=== PATIENT | male | born 1940 | race Caucasian/White ===

== ENCOUNTER 2016-09-02 02:23 | Inpatient (IN) ==
--- NOTE | 2016-08-27 09:09 | EKG Report ---
Test Performed on : 08/27/2016 08:52:08 AM Test Reason : pat joint camo Blood Pressure : / mmHG Vent. Rate : 070 BPM Atrial Rate : 070 BPM P-R Int : 148 ms QRS Dur : 144 ms QT Int : 458 ms P-R-T Axes : 074 -78 105 degrees QTc Int : 494 ms Suspect unspecified pacemaker failure Atrial-sensed ventricular-paced rhythm Abnormal ECG When compared with ECG of 30-MAR-2016 10:50, Electronic ventricular pacemaker has replaced Sinus rhythm. Confirmed by Pepe DIAZ, Kp Kunz ([id number]) on 08/27/2016 3:56:52 PM
[2016-08-27 09:13] LABS: MANUAL DIFF NEEDED? NO; URINE MICRO REVIEW NEEDED? NO; URINE SOURCE CLEAN CATCH
[2016-08-27 09:46] LABS: BASO% 0.3 % (0.0-0.8); BILIRUBIN URINE NEGATIVE (NEGATIVE); BLOOD URINE NEGATIVE (NEGATIVE); COLOR YELLOW; EOS# 0.16 X1000 (0.0-0.7); EOS% 2.2 % (0.0-10.0); GLUCOSE URINE NEGATIVE (NEGATIVE); HEMATOCRIT 46.3 % (42.0-52.0); HEMOGLOBIN 15.5 g/dL (14.0-18.0); IMM GRAN# 0.02 X1000 (0.0-0.04); IMM GRAN% 0.3 % (0.0-0.5); LEUKOCYTES URINE NEGATIVE (NEGATIVE); LYMPH# 2.78 X1000 (1.2-3.4); LYMPH% 38.8 % (20.5-51.1); MCH 31.6 PG (27-31); MCHC 33.5 g/dL (33-37); MCV 94.3 FL (81-99); MONO# 0.65 X1000 (0.11-0.59); MONO% 9.1 % (1.7-9.3); MPV 11.2 FL (7.4-10.4); NEUT% 49.3 % (42.2-75.2); NITRITE URINE NEGATIVE (NEGATIVE); PH URINE 6.5; PLT 226 X1000 (130-400); PROTEIN URINE TRACE mg/dL (NEGATIVE); RBC 4.91 XMIL (4.7-6.1); SP GRAVITY URINE 1.026; TURBIDITY URINE CLEAR (CLEAR); UROBILINOGEN URINE NORMAL (NORMAL)
[2016-08-27 09:48] LABS: UR EPITHELIAL CELLS <10 /HPF (<10); URINE BACTERIA NEGATIVE /HPF; URINE RBC <10 /HPF (<10); URINE WBC <10 /HPF (<10)
[2016-08-27 10:18] LABS: CALCIUM 9.2 mg/dL (8.8-10.2); POTASSIUM 4.4 mmol/L (3.5-5.1)
[2016-08-27 10:56] LABS: INR 0.96; PTT 25.9 Seconds (22.0-36.0)
[2016-09-02] MEDS ORDERED: COLACE ONE (07:59)
[2016-09-02] MEDS ORDERED: REGLAN ONE (07:59)
[2016-09-02] MEDS ORDERED: LYRICA ONE (07:59)
[2016-09-02] MEDS ORDERED: PEPCID ONE (07:59)
[2016-09-02] MEDS ORDERED: CELEBREX ONE (08:00)
[2016-09-02] MEDS ORDERED: VANCOMYCIN 1 GM/NS 1 GM/250 ML IVPB ONE (08:00)
[2016-09-02] MEDS ORDERED: LR 1,000 ML ONE ×2 (08:00→12:36)
[2016-09-02] MEDS ORDERED: TYLENOL PM PO PRN (08:55)
[2016-09-02] MEDS ORDERED: NITROGLYCERIN SL PRN (08:55)
[2016-09-02] MEDS ORDERED: MORPHINE IV PRN (08:57)
[2016-09-02] MEDS ORDERED: UROCIT-K PO SCH (09:00)
[2016-09-02] MEDS ORDERED: CYKLOKAPRON 1,000 MG/NS 1,000 MG/100 ML IVPB ONE ×2 (10:00→10:03)
[2016-09-02] MEDS ORDERED: TORADOL ONE (10:00)
[2016-09-02] MEDS ORDERED: VANCOMYCIN ONE (10:00)
[2016-09-02] MEDS ORDERED: SODIUM CHLORIDE 0.9% ONE (10:00)
[2016-09-02] MEDS ORDERED: MARCAINE 0.25% PF/EPI 1:200,000 ONE (10:00)
[2016-09-02] MEDS ORDERED: EXPAREL 1.3% ONE (10:01)
[2016-09-02] MEDS ORDERED: NAROPIN 0.5% ONE (10:01)
[2016-09-02] MEDS ORDERED: NEOSPORIN G.U. IRRIGANT ONE (10:01)
[2016-09-02 11:16] LABS: URINE MICRO REVIEW NEEDED? NO; URINE SOURCE CATH
[2016-09-02 11:20] LABS: BILIRUBIN URINE NEGATIVE (NEGATIVE); BLOOD URINE NEGATIVE (NEGATIVE); COLOR YELLOW; GLUCOSE URINE NEGATIVE (NEGATIVE); LEUKOCYTES URINE NEGATIVE (NEGATIVE); NITRITE URINE NEGATIVE (NEGATIVE); PROTEIN URINE TRACE mg/dL (NEGATIVE); SP GRAVITY URINE 1.024; TURBIDITY URINE CLEAR (CLEAR); UR EPITHELIAL CELLS <10 /HPF (<10); URINE BACTERIA NEGATIVE /HPF; URINE RBC <10 /HPF (<10); URINE WBC <10 /HPF (<10); UROBILINOGEN URINE NORMAL (NORMAL)
--- NOTE | 2016-09-02 12:01 | OPERATIVE NOTE ---
PROCEDURE DATE: 09/02/2016 PREOPERATIVE DIAGNOSIS: Degenerative joint disease, right knee. POSTOPERATIVE DIAGNOSIS: Degenerative joint disease, right knee. PROCEDURE: Right total knee replacement. SURGEON: Anai Buenrostro MD. ASSISTANTS: SALOMON Walters, and SALOMON Patricia. ANESTHESIA: General. COMPLICATIONS: None. PROCEDURE IN DETAIL: This 75-year-old male presents for a right knee replacement. Risks, benefits, and no guarantees were discussed, and he is willing to proceed. He was taken to the operating room and satisfactory anesthesia obtained. The right knee was prepped and draped in the usual sterile fashion. A time-out was taken to confirm operative site, procedure, and patient. The leg was wrapped with an Esmarch and tourniquet inflated to 350 mmHg. A midline incision was made over the front of the knee, followed by a quad tendon sparing arthrotomy. The patella was everted and resurfaced with freehand technique and subluxed laterally. An intramedullary hole was made in the distal femur and the distal femoral cutting block secured in 5 degrees of valgus. Distal femoral resection was then made and the femur sized to a DePuy size 7 femoral component. The 4 in 1 block was secured, and the anterior, posterior, and chamfer cuts sequentially made. Any osteophytes were debrided about the femur. The PCL was retained. The knee was flexed and a PCL retractor placed behind the tibia to protect the PCL and neurovascular bundle. The tibial cutting block was then secured and the tibial resection made. The tibia was sized to a size 7 tibial tray. Trial reduction was performed with a size 7 tibial tray, a size 7 cruciate retaining femoral component, and a 6 mm poly insert with good range of motion and stability. The patella was sized to a 38 medialized dome patella. Drill holes were placed for the patella and femoral component. The trial components were removed. The bony surfaces were thoroughly irrigated with pulsatile lavage. Cement with a gram of vancomycin was then utilized to cement a DePuy size 7 rotating platform tibial tray, a size 7 right cruciate-retaining femoral component, and a 38 medialized dome patella. Excess cement was removed with a [place] elevator. The joint capsule was injected with Exparel for pain management and a Hemovac drain placed while the cement cured. After curing the cement, a 6 mm rotating platform tibial poly size 7 was placed in the tibial tray and the knee reduced. Final range of motion was 0-120 degrees with midline patellar tracking. The arthrotomy was then copiously irrigated and closed over the drain with #1 Vicryl in the arthrotomy, 2-0 Vicryl in the subcutaneous, and skin kirstin on the skin edges. Sterile dressings completed the closure and the patient was recovered from anesthesia and transferred to the recovery room in stable condition. No intraoperative complications were noted. Instrument count and sponge count were correct at the time of closure. cc: Dionte Buenrostro MD
[2016-09-02] MEDS ORDERED: NS 1,000 ML ONE (12:20)
[2016-09-02] MEDS ORDERED: NEO-SYNEPHRINE ONE (12:36)
[2016-09-02] MEDS ORDERED: XYLOCAINE-MPF 2% ONE (12:36)
[2016-09-02] MEDS ORDERED: DECADRON ONE (12:36)
[2016-09-02] MEDS ORDERED: OFIRMEV 1000 MG/ISOTONIC SOLN 1,000 MG/100 ML BOTTLE ONE (12:36)
[2016-09-02] MEDS ORDERED: ZOFRAN ONE (12:36)
[2016-09-02] MEDS ORDERED: EPHEDRINE ONE (12:36)
[2016-09-02] MEDS ORDERED: DEMEROL ONE (12:40)
[2016-09-02] MEDS ORDERED: PHENERGAN ONE (12:48)
[2016-09-02] MEDS ORDERED: SODIUM CHLORIDE 0.9% INJ PRN (13:04)
[2016-09-02] MEDS ORDERED: PHENERGAN IV PRN (13:04)
[2016-09-02] MEDS ORDERED: FENTANYL ONE (13:08)
[2016-09-02] MEDS ORDERED: DIPRIVAN 1% ONE (13:09)
--- NOTE | 2016-09-02 13:15 | PROGRESS NOTE ---
DATE: 09/02/2016 Mr. To is seen for a postop check and recovery room after total knee replacement. He is awake and alert. He does report some nausea. He has been given Phenergan for this. Dressing is clean and dry. Toes are up and downgoing actively with good range of motion and capillary refill. Vital signs are stable. There is no active bleeding. He appears to be stable at this point. cc: Dionte Buenrostro MD
[2016-09-02] MEDS ORDERED: NS 250 ML IV ONE (13:25)
--- NOTE | 2016-09-02 13:31 | Diag Imaging Result Doc PS360 ---
EXAM: KNEE 1-2 VIEWS-RIGHT HISTORY: tka TECHNIQUE: AP and lateral portable at 1240 COMMENT: There is a total knee arthroplasty. There is a apparent appropriate alignment. No other acute bony abnormalities are present. IMPRESSION: Postsurgical change Electronically signed by Ebenezer Hoang 09/02/2016 1:29 PM
[2016-09-02] MEDS ORDERED: NS 1,000 ML IV SCH (14:00)
[2016-09-02] MEDS: ALDACTONE PO SCH (15:10)
[2016-09-02] MEDS: THERA M PLUS PO SCH (15:11)
[2016-09-02] MEDS: PATIENT'S OWN MED PO SCH (15:11)
[2016-09-02] MEDS: LASIX PO SCH (15:12)
[2016-09-02] MEDS: FLONASE NAS SCH ×2 (15:12→20:40)
[2016-09-02] MEDS: NEURONTIN PO SCH ×2 (15:12→17:22)
[2016-09-02] MEDS: COREG PO SCH ×2 (15:13→20:36)
[2016-09-02] MEDS: APRESOLINE PO SCH ×2 (17:17→17:19)
[2016-09-02] MEDS: COLACE PO SCH ×2 (17:20→20:39)
[2016-09-02] MEDS: CELEBREX PO SCH (17:20)
[2016-09-02] MEDS: NORCO-10 PO PRN ×2 (17:23→21:59)
[2016-09-02] MEDS ORDERED: PNEUMOVAX 23 IM ONE (18:30)
[2016-09-02] MEDS: PERIDEX MT SCH (20:35)
[2016-09-02] MEDS ORDERED: MAG-OX PO SCH (21:00)
[2016-09-02] MEDS ORDERED: LIPITOR PO SCH (21:00)
[2016-09-02] MEDS ORDERED: VANCOMYCIN 1 GM/NS 1 GM/250 ML IVPB IV ONE (21:00)
[2016-09-02] MEDS ORDERED: IMDUR PO SCH (21:00)
[2016-09-03] MEDS: NORCO-10 PO PRN (04:00)
[2016-09-03] MEDS ORDERED: XARELTO PO SCH (06:00)
[2016-09-03 06:06] LABS: CALCIUM 8.3 mg/dL (8.8-10.2); POTASSIUM 4.8 mmol/L (3.5-5.1)
[2016-09-03 06:47] LABS: HEMATOCRIT 38.3 % (42.0-52.0); HEMOGLOBIN 12.8 g/dL (14.0-18.0)
[2016-09-03] MEDS ORDERED: PRILOSEC PO SCH (07:00)
[2016-09-03] MEDS ORDERED: NORCO-10 PO PRN (07:02)
--- NOTE | 2016-09-03 07:33 | DISCHARGE SUMMARY ---
ADMISSION DATE: 09/02/2016 DISCHARGE DATE: 09/03/2016 ADMITTING HISTORY AND HOSPITAL COURSE: This 75-year-old male with end-stage DJD about the right knee was admitted for knee replacement. He underwent successful knee replacement on 09/02/2016. On 09/03/2016, he is afebrile with stable vital signs. He is discharged home today for outpatient followup. He is to receive home physical therapy. He is to return in the interim for any worsening signs or symptoms. DISCHARGE MEDICATIONS: Include his home medicines consisting of 1. Atorvastatin. 2. Calcium 40 mg. 3. Carvedilol 12.5 mg. 4. Flonase nasal spray. 5. Lasix 40 mg. 6. Hydralazine 50 mg. 7. Isosorbide 30 mg. 8. Naprosyn 500 b.i.d. 9. Neurontin as needed. 10. Potassium citrate ER 10 mEq. 11. Prilosec 10 mg daily. 12. Ultram 50 mg as needed. 13. Urocit-K 10 tablet extended release. 14. Ziac tablet. 15. Baby aspirin a day. 16. [place] 10 one to two every 4-6 hours. 17. Bactrim DS b.i.d. for 5 days. 18. Xarelto 10 mg for 2 weeks. 19. Flexeril 20 mg as needed for muscle spasm. cc: Dionte Buenrostro MD
[2016-09-03 07:35] VITALS: BP 126/71
[2016-09-03] MEDS ORDERED: UROCIT-K PO SCH (09:00)
[2016-09-03] MEDS: FLONASE NAS SCH (09:01)
[2016-09-03] MEDS: LASIX PO SCH (09:01)
[2016-09-03] MEDS: APRESOLINE PO SCH (09:01)
[2016-09-03] MEDS: CELEBREX PO SCH (09:01)
[2016-09-03] MEDS: COLACE PO SCH (09:01)
[2016-09-03] MEDS: NEURONTIN PO SCH (09:01)
[2016-09-03] MEDS: COREG PO SCH (09:01)
[2016-09-03] MEDS: PERIDEX MT SCH (09:02)
[2016-09-03] MEDS: THERA M PLUS PO SCH (09:02)
[2016-09-03] MEDS: ALDACTONE PO SCH (09:02)
[2016-09-03] MEDS: PATIENT'S OWN MED PO SCH (09:03)
== END 2016-09-03 12:49 | disposition home health service (06) ==
LOC: SURHOLD 02:23 → 4N 10:31
PROVIDERS: ADMIT Orthopaedic Surgery Adult Reconstructive Orthopaedic Surgery; ATTEND Orthopaedic Surgery Adult Reconstructive Orthopaedic Surgery